=== PATIENT | female | born 1985 | race Caucasian/White ===

== ENCOUNTER → 2021-03-14 08:45 | Outpatient (CLI) | payer OTHER, SELFPAY ==
--- NOTE | ~2021-03-14 | US_ITS ---
EXAMINATION: US OB follow up DATE: 03/14/2021 09:22 INDICATION: Follow-up survey TECHNIQUE: Multiple obstetric sonographic images performed. FINDINGS: No prior studies for comparison. There is a single living fetus in vertex presentation. The placenta is paracentral to the left measu ring 1.2 cm to the cervix. without placenta previa. Amniotic fluid volume is subjectively normal. cardiac activity and movement is noted with a heart rate of 145 beats per minute. The following anatomy was identified as normal: 4 chamber heart 3 vessel cord cord insertion kidneys urinary bladder stomach spine diaphragm ventricles cisterna magna cerebellum The following biometric data were obtained: BPD: 63mm corresponds to gestational age 25 weeks 4 days. Head circumference: 232 mm corresponds to gestational age 25 weeks 2 days. Abdominal circumference: 207 mm corresponds to gestational age 25 weeks 2 days. Femur length: 48 mm corresponds to gestational age 26 weeks 1 days. Head circumference to abdominal circumference ratio: 1.12 (normal range for expected gestational age is 1.04-1.22). Estimated weight: 828 grams +/- 124 grams using Hadlock method. IMPRESSION: 1: Single living intrauterine with an estimated gestational age of 25weeks 4days by initial ultrasound measurements, with an EDC of 06/23/2021 in vertex presentation. 2. Normal survey. 3: Low-lying placenta measuring 1.2 cm to the cervix posteriorly. Reviewed, dictated and finalized at location B. IMPRESSION: 1: Single living intrauterine with an estimated gestational age of 25 weeks 4days by initial ultrasound measurements, with an EDC of 06/23/2021 in mindy lexi presentation. 2. Normal survey. 3: Low-lying placenta measuring 1.2 cm to the cervix posteriorly.
== END ==
PROVIDERS: Visit Provider Obstetrics & Gynecology
DX: O44.42 Low lying placenta NOS or without hemorrhage, second trimester (principal); Z3A.25 25 weeks gestation of pregnancy
CPT/HCPCS: 76816

== ENCOUNTER → 2021-04-12 11:24 | Outpatient (CLI) | payer OTHER, SELFPAY ==
--- NOTE | ~2021-04-12 | US_ITS ---
EXAMINATION: US OB follow up DATE: 04/12/2021 12:03 INDICATION: Follow-up low lying placenta. TECHNIQUE: Real-time transabdominal obstetric ultrasound. FINDINGS: Comparison ultrasound dated 03/14/2021 There is a single living fetus in vertex presentation. The placenta is paracentral to the left and i s low lying measuring 2.5 cm to the cervix without placenta previa. cardiac activity and movement is noted with a heart rate of 155 beats per minute. T he amniotic fluid volume is normal. JESSICA measures 11.6 cm. The following biometric data were obtained: BPD: 78mm corresponds to gestational age 31 weeks 2 days. Head circumference: 281mm corresponds to gestational age 30 weeks 6 days. Abdominal circumference: 245mm corresponds to gestational age 28 weeks 5 days. Femur length: 55mm corresponds to gestational age 29 weeks 1 days. Estimated weight: 1355grams +/- 203grams. IMPRESSION: 1. Single living intrauterine in vertex presentation with an estimated gestational age of 29 weeks 5 days by inititial ultrasound. Appropriate interval growth. 2. Low-lying placenta measuring 2.5 cm to the cervix. Reviewed, dictated and finalized at location A. IMPRESSION: 1. Single living intrauterine in vertex presentation with an estimat ed gestational age of 29 weeks 5 days by inititial ultrasound. Appropriate int erval growth. 2. Low-lying placenta measuring 2.5 cm to the cervix.
== END ==
PROVIDERS: Visit Provider Obstetrics & Gynecology
DX: Z34.93 Encounter for supervision of normal pregnancy, unspecified, third trimester (principal); Z3A.29 29 weeks gestation of pregnancy
CPT/HCPCS: 76816

== ENCOUNTER 2021-06-16 21:07 | Observation (INO) | payer OTHER, SELFPAY ==
[2021-06-16 21:20] VITALS: BMI 24.9
--- NOTE | 2021-06-16 22:25 | OBADM ---
This patient, Mandi Blanco, admitted to the OB room Labor/Delivery/Recovery 106 for observation. Patient/family oriented to hospital policies and general routines including ID bracelet, bed and alarms, visiting hours, pain management, procedures, bathroom and other care routines, personal items, smoking policy, room service/diet, and visiting hours. Patient/Family are encouraged to report perceived risks to care and to ask questions if they do not understand what they are told or what they should do.
--- NOTE | 2021-06-17 07:07 | PM.OBTRLD ---
OB - Triage/Final Diagnosis Visit Information Date of evaluation: 06/16/21 Reason for evaluation: threatened labor Comments/Additional reasons for admission: I have assessed the risk for this patient, Mandi Blanco, and determined that she would benefit from observation care.
== END 2021-06-16 22:33 | disposition home or self-care (01) ==
PROVIDERS: Admitting Provider Obstetrics & Gynecology; Visit Provider Obstetrics & Gynecology
DX: O47.1 False labor at or after 37 completed weeks of gestation (principal); Z3A.38 38 weeks gestation of pregnancy
CPT/HCPCS: G0378; G0379

== ENCOUNTER 2021-06-22 06:01 | Inpatient (IN) | payer OTHER, SELFPAY ==
[2021-06-22] VITALS (93 sets, daily range): BP systolic 77–169; BP diastolic 25–116; PULSE 72–149; RESP 12–18; TEMP 36.1–37.3; O2SAT 98–100; BMI 25.9
[2021-06-22] MEDS: AMPICILLIN 2 GM/NS 100 ML 2 GM/100 ML BAG IVPB (06:55)
[2021-06-22] MEDS: LACTATED RINGERS 1,000 ML 125 ML IV CONT ×4 (06:55→17:18)
--- NOTE | 2021-06-22 07:00 | LDADM ---
This patient, Mandi Blanco, was admitted to Labor/Delivery/Recovery 104 on 06/22/21 at 06:01. Plans for labor, pain management and were discussed with patient. Patient/family oriented to hospital policies and general routines including ID bracelet, bed and alarms, visiting hours, pain management, procedures, bathroom and other care routines, personal items, smoking policy, room service/diet and guest tray routines, infant security routines, and visiting hours. Patient/Family are encouraged to report perceived risks to care and to ask questions if they do not understand what they are told or what they should do. See OBIX for further documentation.
[2021-06-22 07:07] LABS: Basophils Absolute Auto 0.1 K/mm3 (0.0-0.1); Basophils Percent Auto 0.7 % (0.2-1.2); Eosinophils Absolute Auto 0.5 K/mm3 (0-0.3); Eosinophils Percent Auto 4.2 % (0-4.4); Hematocrit 34.5 % (37.0-47.0); Hemoglobin 11.3 g/dL (12.0-15.0); Immature Granulocyte Absolute 0.53 K/mm3 (0.00-0.031); Immature Granulocyte Percent A 4.8 % (0-0.5); Lymphocytes Absolute Auto 1.76 K/mm3 (0.9-3.2); Lymphocytes Percent Auto 16.1 % (18.3-44.2); Mean Corpuscular HGB Conc 32.8 g/dl (32-36); Mean Corpuscular Hemoglobin 30.2 pg (26-34); Mean Corpuscular Volume 92.2 fl (80-100); Mean Platelet Volume 10.5 fl (7.4-10.4); Monocytes Absolute Auto 0.9 K/mm3 (0.1-0.6); Monocytes Percent Auto 8.1 % (2.6-8.5); Neutrophils Absolute Auto 7.2 K/mm3 (1.3-6.7); Neutrophils Percent Auto 66.1 % (45.5-73.1); Platelet Count Result 214 k/mm3 (150-375); Red Blood Count 3.74 M/mm3 (4.2-5.4); Red Cell Distribution Width 15.9 % (11.5-14.5)
--- NOTE | 2021-06-22 07:28 | PM.IMHP ---
H&P: HPI History of Present Illness Date/Time: 06/22/21 07:28 This is a 35-year-old 6 para 2031 whose last menstrual period was 09/21/2020, EDC is 06/28/2021, confirmed by early ultrasound presents at 39 weeks gestation for induction of labor. She is positive for group B strep and will be treated as such. She has a history of a LEEP. Her has been otherwise uncomplicated Chief Complaint: induction of lbor at t Review of Systems Review of Systems: All systems reviewed & are unremarkable except as noted in HPI and below PMFSH Family History Family History Son Hypospadias Heart murmur Grandparent Diabetes mellitus Acute myocardial infarction Mother Hypertension Social History Social History Smoking status: Never smoker Substance use: never Spiritual care concerns: No Meds Home Medications and Allergies Home Medications Medication Instructions Recorded Confirmed Type ergocalciferol (vitamin D2) 1,250 mcg PO WEEKLY 06/01/21 06/01/21 History [Vitamin D2] prenat.vits,jeanne,[id number] 1 tablet PO DAILY 06/01/21 06/01/21 History Allergies Allergy/AdvReac Type Severity Reaction Status Date / Time Sulfa (Sulfonamide Allergy Intermediate SWELLING,HI Verified 02/10/16 15:41 Antibiotics) VES Vital Signs Vital Signs - 24 hr 06/22/21 06:58 06/22/21 07:00 Temperature 99.1 F Pulse Rate 87 90 Blood Pressure 124/57 L 114/63 Exam Const: General: no acute distress Eyes: General: appearance normal, both eyes and all related structures Neck: Neck: supple and no JVD Thyroid: thyroid normal Resp: Effort & Inspection: normal respiratory effort Auscultation: clear to auscultation bilaterally Cardio: Rate: regular rate Rhythm: regular rhythm GI: Inspection: non-distended GI Palp: Yes Soft to palpation, No Tenderness to palpation present (GI) and No Guarding due to palpation present (GI) Auscultation: normal bowel sounds : External Female Exam: normal external appearance Speculum Exam - Vagina: normal appearance of the vagina Speculum Exam - Cervix: Cervical os closed ( 75/1. AROM clear. FHTs were reassuring) Bimanual Exam- Adnexa, other: normal adnexae Skin: General skin exam: no rashes or lesions noted Extrem: General: normal to inspection and no edema Psych: Mental Status: mental status grossly normal Affect: normal affect H&P: Results Labs Labs: Short CBC 06/22/21 Range/Units 06:45 WBC 11.0 H (4.5-10.0) K/mm3 Hgb 11.3 L (12.0-15.0) g/dL Hct 34.5 L (37.0-47.0) % Plt Count 214 (150-375) k/mm3 Assessment and Plan Additional Plan impression: Term with favorable cervix and group B strep positive Plan: Medical induction of labor. Spontaneous vaginal delivery is expected. Group B strep prophylaxis is being undertaken. She has an epidural candidate
[2021-06-22] MEDS: OXYTOCIN 30 UNITS/NS 500 ML 30 UNITS/500 ML BAG IV CONT (07:52)
--- NOTE | 2021-06-22 09:00 | WPDANESEPP ---
Anes - Eval Pre Procedure Procedure: Labor Pain Management Date/Time: 06/22/21 09:00 Surgeon: Issac Preop Diagnosis: Pain during labor Pre Op Diagnosis: iol Patient Data Age: 35 Gender: F Height: 1.63 m Weight: 68.5 kg Last Vital Signs Temp 98.7 F 06/22/21 08:30 Pulse 92 06/22/21 08:30 BP 103/54 L 06/22/21 08:30 Allergies Allergy/AdvReac Type Severity Reaction Status Date / Time Sulfa (Sulfonamide Allergy Intermediate SWELLING,HI Verified 02/10/16 15:41 Antibiotics) VES Home Medications Medication Instructions Recorded Confirmed Type ergocalciferol (vitamin D2) 1,250 mcg PO WEEKLY 06/01/21 06/01/21 History [Vitamin D2] prenat.vits,jeanne,[id number] 1 tablet PO DAILY 06/01/21 06/01/21 History Laboratory Tests 06/22/21 06/22/21 06/22/21 06:45 06:45 06:45 WBC 11.0 K/mm3 H K/mm3 (4.5-10.0) RBC 3.74 M/mm3 L M/mm3 (4.2-5.4) Hgb 11.3 g/dL L g/dL (12.0-15.0) Hct 34.5 % L % (37.0-47.0) MCV 92.2 fl fl (80-100) MCH 30.2 pg pg (26-34) MCHC 32.8 g/dl g/dl (32-36) RDW 15.9 % H % (11.5-14.5) Plt Count 214 k/mm3 k/mm3 (150-375) MPV 10.5 fl H fl (7.4-10.4) Immature Gran % (Auto) 4.8 % H % (0-0.5) Neut % (Auto) 66.1 % % (45.5-73.1) Lymph % (Auto) 16.1 % L % (18.3-44.2) [place] % (Auto) 8.1 % % (2.6-8.5) Eos % (Auto) 4.2 % % (0-4.4) Baso % (Auto) 0.7 % % (0.2-1.2) Lymph # (Auto) 1.76 K/mm3 K/mm3 (0.9-3.2) [place] # (Auto) 0.9 K/mm3 H K/mm3 (0.1-0.6) Eos # (Auto) 0.5 K/mm3 H K/mm3 (0-0.3) Baso # (Auto) 0.1 K/mm3 K/mm3 (0.0-0.1) Abs Immat Gran (auto) 0.53 K/mm3 H K/mm3 (0.00-0.031) Absolute Neuts (auto) 7.2 K/mm3 H K/mm3 (1.3-6.7) Absolute Nucleated RBC 0.0 K/mm3 K/mm3 (0.0-0.012) Nucleated RBC % 0.0 % % (0.0-0.2) RPR Pending Blood Type Pending Antibody Screen Pending : gestational age (06/28/21) Patient hx anesthesia problems: none Family hx anesthesia problems: [facility] Past Medical History Medical History (Updated 06/22/21 @ 08:57 by Kaycee Dave CRNA) Pain during labor Family History Family History Son Hypospadias Heart murmur Grandparent Diabetes mellitus Acute myocardial infarction Mother Hypertension Social History Social History Smoking status: Never smoker Substance use: never Spiritual care concerns: No Exam Day of Procedure 06/22/21 09:00
--- NOTE | 2021-06-22 11:00 | PM.OBPNLAB ---
Pain Control Date/time seen: 06/22/21 11:00 Pain control: tolerating well and epidural Pelvic Exam Dilation (cm): 4 Effacement (%): 75 station: 0 Amniotic membrane status: Ruptured Contractions Monitor mode: External Contraction pattern: Regular
[2021-06-22] MEDS: AMPICILLIN 1 GM/NS 50 ML 1 GM/50 ML BAG IVPB (11:05)
--- NOTE | 2021-06-22 12:55 | PM.OBPRVD ---
OB - Delivery Note Procedure Delivery date: 06/22/21 Procedure: mil Intrapartal events: None Induction method: AROM Delivery augmentation: pitocin Delivery monitor: external FHT Route of delivery: Episiotomy description: None Laceration Description: Perineal - 2nd Degree Delivery repair: vicryl Specimen: No Quantitative Blood Loss (ml): 400 Anesthesia type: Epidural Disposition: floor Complications: amp x 2 for gbs [place] Baby Date of : 06/22/21 Time of : 12:41 Weeks of gestation at delivery: 39 Infant gender: Male Weight (pounds): 9 Weight (ounces): 2 presentation: vertex position: Right Occiput Anterior Placenta delivery description: Spontaneous cord vessel description: 3 Vessels score one minute: 9 score five minutes: 9
[2021-06-22] MEDS: miSOPROStol 200 MCG TABLET 1000 MCG (13:00)
[2021-06-22] MEDS: OXYTOCIN 30 UNITS/NS 500 ML 30 UNITS/500 ML BAG 999 UNITS IV CONT (13:10)
--- NOTE | 2021-06-22 13:50 | W.PM.PROC2 ---
Procedure Note - Detailed Date of Procedure 06/22/21 Pre-op Diagnosis pp bleed Post-op Diagnosis same Procedure Performed Suction dilatation curettage/exam under anesthesia Surgeon Sourav Ramos MD Anesthesia MAC and regional Indications This is a patient half an hour who was bleeding Findings size uterus. Clots were seen in the uterus. The cervix appeared intact. The second-degree midline tear appeared intact Description of Procedure The patient was prepped draped in normal sterile fashion placed in dorsal lithotomy position. Under excellent IV sedation weighted speculum placed in posterior fornix vagina. Anterior lip grasped with a sponge stick. This was traversed around its entire 360? and no tear was seen. Bleeding was seen coming from the uterine tissue. The 12. Suction curette was passed and moderate amount of clots resulting in about 200cc of clotted tissue and clots were noted. A good grating sound was heard. The vagina was then packed and the patient went to recovery in satisfactory condition. All sponge, needle, instrument counts were correct Estimated Blood Loss 200 Drains No Packing Yes Pathology yes Complications No immediate complications Condition stable Disposition floor
[2021-06-22] MEDS: ACETAMINOPHEN 325 MG TABLET 650 MG PO (16:01)
[2021-06-22 16:31] LABS: Hematocrit 32.7 % (37.0-47.0); Hemoglobin 10.5 g/dL (12.0-15.0); Mean Corpuscular HGB Conc 32.1 g/dl (32-36); Mean Corpuscular Hemoglobin 30.3 pg (26-34); Mean Corpuscular Volume 94.2 fl (80-100); Mean Platelet Volume 10.7 fl (7.4-10.4); Platelet Count Result 206 k/mm3 (150-375); Red Blood Count 3.47 M/mm3 (4.2-5.4); Red Cell Distribution Width 15.8 % (11.5-14.5); White Blood Count 11.4 K/mm3 (4.5-10.0)
[2021-06-22 16:40] LABS: Partial Thromboplastin Time 26.8 SECONDS (22.3-36.8); Prothrombin Time 13.3 Seconds (11.1-14.7)
[2021-06-22] MEDS: IBUPROFEN 600 MG TABLET PO ×2 (17:10→23:00)
[2021-06-22 17:23] LABS: Hematocrit 27.2 % (37.0-47.0); Hemoglobin 9.2 g/dL (12.0-15.0)
--- NOTE | 2021-06-22 19:08 | PC.NURSE ---
1650 Pt admitted to room 283 per stretcher from labor and delivery after vaginal delivery at [address] Rai Sheikh. Mother had a D&C after delivery. Mother is a and is choosing to breast feed infant. /FOB present. Couple oriented to room, staffing and procedures; admission folder reviewed. Pt's VSS and assessment WNL.
[2021-06-22] MEDS: HYDROcodone/acetaminophen (*CRX) 5-325 MG TABLET 1 TAB PO ×2 (19:24→22:16)
[2021-06-22] MEDS: POLYSACCHARIDE IRON COMPLEX 150 MG CAPSULE PO (19:24)
--- NOTE | 2021-06-22 20:57 | PC.NURSE ---
1850 - epidural line removed per pt's request, states it is painful, removed easily, tip intact
--- NOTE | 2021-06-22 22:37 | PC.NURSE ---
vaginal packing removed as ordered
[2021-06-22] MEDS: DOCUSATE SODIUM 100 MG CAPSULE PO (23:00)
[2021-06-23 00:05] VITALS: BP 100/45; PULSE 78; RESP 18; TEMP 36.2; O2SAT 99
[2021-06-23] MEDS: HYDROcodone/acetaminophen (*CRX) 5-325 MG TABLET 1 TAB PO ×2 (03:27→19:53)
[2021-06-23 04:21] VITALS: BP 99/55; PULSE 75; RESP 18; TEMP 35.8; O2SAT 100
[2021-06-23 05:00] LABS: Hematocrit 23.9 % (37.0-47.0); Hemoglobin 7.9 g/dL (12.0-15.0)
--- NOTE | 2021-06-23 06:35 | PM.OBPNVD ---
OB - PN: Subj Subjective Date/time seen: 06/23/21 06:35 Patient comments: no complaints and pain well controlled baby status: doing well and nursing well OB - PN: Obj Data Labs CBC & Chem 7: 06/23/21 04:28 Labs: Laboratory Results - last 24 hr 06/22/21 06/22/21 06/22/21 06:45 06:45 13:16 WBC 11.0 H 11.4 H RBC 3.74 L 3.47 L Hgb 11.3 L 10.5 L Hct 34.5 L 32.7 L MCV 92.2 94.2 MCH 30.2 30.3 MCHC 32.8 32.1 RDW 15.9 H 15.8 H Plt Count 214 206 MPV 10.5 H 10.7 H Immature Gran % (Auto) 4.8 H Neut % (Auto) 66.1 Lymph % (Auto) 16.1 L [place] % (Auto) 8.1 Eos % (Auto) 4.2 Baso % (Auto) 0.7 Lymph # (Auto) 1.76 [place] # (Auto) 0.9 H Eos # (Auto) 0.5 H Baso # (Auto) 0.1 Abs Immat Gran (auto) 0.53 H Absolute Neuts (auto) 7.2 H Absolute Nucleated RBC 0.0 Nucleated RBC % 0.0 PT INR APTT Blood Type B Positive Antibody Screen Negative 06/22/21 06/22/21 06/23/21 13:16 17:01 04:28 WBC RBC Hgb 9.2 L 7.9 L Hct 27.2 L 23.9 L MCV MCH MCHC RDW Plt Count MPV Immature Gran % (Auto) Neut % (Auto) Lymph % (Auto) [place] % (Auto) Eos % (Auto) Baso % (Auto) Lymph # (Auto) [place] # (Auto) Eos # (Auto) Baso # (Auto) Abs Immat Gran (auto) Absolute Neuts (auto) Absolute Nucleated RBC Nucleated RBC % PT 13.3 INR 1.0 APTT 26.8 Blood Type Antibody Screen OB - PN A/P Plan day: 1 Plan: routine care Comments: Begin iron supplementation Time Spent With Patient Time: Total time spent is greater than 50% in coordination of care (as documented) at patient's floor/unit and/or counseling patient: Time with patient: less than 15 minutes Review of Systems Review of Systems: All systems reviewed & are unremarkable except as noted in HPI and below Exam Const: General: no acute distress Eyes: General: appearance normal, both eyes and all related structures Neck: Neck: supple and no JVD Thyroid: thyroid normal Resp: Effort & Inspection: normal respiratory effort Auscultation: clear to auscultation bilaterally Cardio: Rate: regular rate Rhythm: regular rhythm GI: Inspection: non-distended GI Palp: Yes Soft to palpation, No Tenderness to palpation present (GI) and No Guarding due to palpation present (GI) Auscultation: normal bowel sounds : General: Yes bladder normal to palpation External Female Exam: normal external appearance Speculum Exam - Vagina: normal vaginal discharge and No vaginal bleeding Speculum Exam - Cervix: nontender Bimanual exam- vagina & uterus: bladder normal to palpation and No Cervical tenderness present OB/external & speculum: No vaginal bleeding Skin: General skin exam: no rashes or lesions noted Extrem: General: normal to inspection and no edema Psych: Mental Status: mental status grossly normal Affect: normal affect
[2021-06-23] MEDS: IBUPROFEN 600 MG TABLET PO ×2 (07:17→14:13)
[2021-06-23] MEDS: LANOLIN (LANSINOH) 7.5 GM CREAM 1 APPLIC TOPICAL (07:17)
[2021-06-23] MEDS: DOCUSATE SODIUM 100 MG CAPSULE PO ×2 (07:18→17:35)
[2021-06-23] MEDS: POLYSACCHARIDE IRON COMPLEX 150 MG CAPSULE PO ×2 (07:18→17:35)
[2021-06-23] MEDS: MULTIVIT/MIN/PREN/FOL AC/IRON TABLET 1 TAB PO (07:18)
--- NOTE | 2021-06-23 09:10 | PC.NURSE ---
Mother called out for assist with feeding, reporting tenderness with feeding. is able to freely thrust tongue past gum ridge and flange both lips, upper lip appears to have a thick frenulum. Skin is intact on both nipples, no redness and bruising noted. Reviewed feeding cues, frequencies, duration of feedings, feeding elimination flow sheet, and signs of adequate intake. Demonstrated stimulation techniques to wake infant for feeding. Assisted with to breast. Reviewed positioning/alignment in cross cradle, holding breast in ?U? hold and guided asymmetrical latch on. Reviewed rational for each. able to latch correctly within a few attempts. Infant nursed eagerly with steady draws and occasional swallowing noted, some pausing noted. Reviewed signs of a correct latch, effective nursing and suck swallow ratio. Suggested mother stimulate while feeding to increase stimulate, increase intake and to assist with maintaining deep latch. Infant would slip to shallow latch once mother released hold on breast. Suggested mother maintain U hold during entire feeding to assist with maintaining deep latch. Demonstrated how to adjust latch more deeply while feeding. Mother reports sh he can feel the difference in latch with less tenderness. Nipple care Reviewed of lanolin after feedings, warm compresses as needed. Instructed mother to call out for RN assistance if she is unable to latch infant for feeding or she has discomfort with nursing. Instructed feeding should be initiated three hours from start of last feeding or if feeding cues are noted before. Mother voiced understanding of information shared
--- NOTE | 2021-06-23 10:23 | WPDANESPN ---
Anes - Prog Note Post-Op Date/Time: 06/23/21 10:23 Cardiovascular status: normal Respiratory status: normal Airway patency: baseline Mental status: baseline Post-Op hydration status: normal Vital Signs: Last Vital Signs Temp 96.5 F L 06/23/21 04:21 Pulse 75 06/23/21 04:21 Resp 18 06/23/21 04:21 BP 99/55 L 06/23/21 04:21 Pulse Ox 100 06/23/21 04:21 Pain Score (VAS): 10 I/O: Intake & Output 06/22/21 06/23/21 06/23/21 23:59 07:59 15:59 Intake Total 300 200 Output Total 1550 800 Balance -1250 -600 Laboratory Tests 06/23/21 04:28 06/22/21 06/22/21 06/22/21 13:16 13:16 17:01 WBC 11.4 H RBC 3.47 L Hgb 10.5 L 9.2 L Hct 32.7 L 27.2 L MCV 94.2 MCH 30.3 MCHC 32.1 RDW 15.8 H Plt Count 206 MPV 10.7 H PT 13.3 INR 1.0 APTT 26.8 06/23/21 04:28 WBC RBC Hgb 7.9 L Hct 23.9 L MCV MCH MCHC RDW Plt Count MPV PT INR APTT Patient Feedback: Patient satisfied with anesthetic care.
--- NOTE | 2021-06-23 10:35 | WPDANLDPN2 ---
Anes-Prog Note L&D Date/Time: 06/23/21 10:35 Comfortable throughout: labor and delivery Neuraxial method: epidural Neuro status: Neuro function grossly intact. Cardiovascular status: normal Respiratory status: normal Airway patency: baseline Mental status: baseline Post-Op hydration status: normal Vital Signs: Last Vital Signs Temp 96.5 F L 06/23/21 04:21 Pulse 75 06/23/21 04:21 Resp 18 06/23/21 04:21 BP 99/55 L 06/23/21 04:21 Pulse Ox 100 06/23/21 04:21 Pain score (VAS): 0/10 I/O: Intake & Output 06/22/21 06/23/21 06/23/21 23:59 07:59 15:59 Intake Total 300 200 Output Total 1550 800 Balance -1250 -600 Post-procedural complaints: none Patient feedback: Patient satisfied with anesthetic care.
[2021-06-23 11:49] VITALS: BP 95/57; PULSE 73; RESP 18; TEMP 36; O2SAT 100
[2021-06-23 12:55] VITALS: BP 90/48; PULSE 82; RESP 16; TEMP 36.6; O2SAT 99
[2021-06-23] MEDS: ACETAMINOPHEN 325 MG TABLET 650 MG PO (14:14)
[2021-06-23 20:00] VITALS: BP 93/52; PULSE 85; RESP 16; TEMP 37.1; O2SAT 98
[2021-06-24] MEDS: ACETAMINOPHEN 325 MG TABLET 650 MG PO (01:57)
[2021-06-24] MEDS: IBUPROFEN 600 MG TABLET PO ×2 (01:57→11:27)
--- NOTE | 2021-06-24 07:25 | PM.DS ---
DS: Admitting Diagnosis Discharge Date 06/24/21 Admitting Diagnosis term iup DS: Summary Hospital Course Hospital Course: The patient was admitted for induction of labor. She was positive for group B strep in underwent group B strep prophylaxis. She had a spontaneous vaginal delivery under epidural anesthesia. She had bleeding which she had experienced before in the past. Exam under anesthesia and suction D&C removed clots. She was packed and that was removed that evening. She remained afebrile she was up, voiding without difficulty, ambulating, generally without complaints. She was taking iron [id number]. Time Spent with Patient Time attestation: Total time spent providing and/or coordinating discharge services: Exam Const: General: no acute distress Eyes: General: appearance normal, both eyes and all related structures Neck: Neck: supple and no JVD Thyroid: thyroid normal Resp: Effort & Inspection: normal respiratory effort Auscultation: clear to auscultation bilaterally Cardio: Rate: regular rate Rhythm: regular rhythm GI: Inspection: non-distended GI Palp: Yes Soft to palpation, No Tenderness to palpation present (GI) and No Guarding due to palpation present (GI) Auscultation: normal bowel sounds : General: Yes bladder normal to palpation External Female Exam: normal external appearance Speculum Exam - Vagina: normal vaginal discharge and No vaginal bleeding Speculum Exam - Cervix: nontender Bimanual exam- vagina & uterus: bladder normal to palpation and No Cervical tenderness present OB/external & speculum: No vaginal bleeding Skin: General skin exam: no rashes or lesions noted Extrem: General: normal to inspection and no edema Psych: Mental Status: mental status grossly normal Affect: normal affect DS: Data Data Completed and Pending Pending studies at discharge: Pending at discharge 06/22/21 13:40 Surgical [PTH] Routine Discharge Plan Discharge Attending physician on discharge: Sourav Ramos Discharging Clinician: Sourav Ramos Patient Disposition: Home, Self-Care Activity: may shower, no straining and pelvic rest Diet: heart healthy Wound Care Instructions: follow printed instructions Patient Instructions: Antibiotic Form Stand Alone Forms: General Discharge Information Follow-up/Referrals: Sourav Ramos MD [Physician] - Discharge Medications: New ferrous sulfate [Iron (ferrous sulfate)] 325 mg (65 mg iron) tablet 325 mg PO DAILY Qty: 30 RF: 0 Continued ergocalciferol (vitamin D2) [Vitamin D2] 1,250 mcg (50,000 unit) Capsule 1,250 mcg PO WEEKLY RF: 0 prenat.vits,jeanne,[id number] Tablet 1 tablet PO DAILY RF: 0 Date of admission: 06/22/21 06:01 Primary Care Provider: PHYSICIAN,SUPERVISOR [employer] Admitting Provider: Sourav Ramos Attending physician on admission: Sourav Ramos Condition: Stable
--- NOTE | 2021-06-24 07:28 | PM.OBPNVD ---
OB - PN: Subj Subjective Date/time seen: 06/24/21 07:28 Patient comments: no complaints and pain well controlled baby status: doing well and nursing well OB - PN: Obj Data Labs CBC & Chem 7: 06/23/21 04:28 OB - PN A/P Plan day: 2 Plan: routine care, discharge home and follow up 6 weeks Time Spent With Patient Time: Total time spent is greater than 50% in coordination of care (as documented) at patient's floor/unit and/or counseling patient: Time with patient: less than 15 minutes Review of Systems Review of Systems: All systems reviewed & are unremarkable except as noted in HPI and below Exam Const: General: no acute distress Eyes: General: appearance normal, both eyes and all related structures Neck: Neck: supple and no JVD Thyroid: thyroid normal Resp: Effort & Inspection: normal respiratory effort Auscultation: clear to auscultation bilaterally Cardio: Rate: regular rate Rhythm: regular rhythm GI: Inspection: non-distended GI Palp: Yes Soft to palpation, No Tenderness to palpation present (GI) and No Guarding due to palpation present (GI) Auscultation: normal bowel sounds : General: Yes bladder normal to palpation External Female Exam: normal external appearance Speculum Exam - Vagina: normal vaginal discharge and No vaginal bleeding Speculum Exam - Cervix: nontender Bimanual exam- vagina & uterus: bladder normal to palpation and No Cervical tenderness present OB/external & speculum: No vaginal bleeding Skin: General skin exam: no rashes or lesions noted Extrem: General: normal to inspection and no edema Psych: Mental Status: mental status grossly normal Affect: normal affect
[2021-06-24 07:45] VITALS: BP 103/59; PULSE 82; RESP 16; TEMP 36.2; O2SAT 100
[2021-06-24 08:50] LABS: Rapid Plasma Reagin Non-Reactive (NonReactive)
--- NOTE | 2021-06-24 09:10 | PC.NURSE ---
Consult with pt., observed mother is able to independently latch with appropriate positioning/alignment. eagerly latches on first attempt with long rhythmical draws and frequent swallowing noted. She reports slight nipple discomfort, is feeding as required and waking to feed if needed. Infant tends to roll bottom lip in, demonstrated how to roll lip out while feeding. has had at least 8 effective feedings in the past 24 hours, and is currently meeting outcomes for weight, output, jaundice and feeding frequencies. Mother states she feels confident to continue effective at home. Reviewed transition to breast milk, signs of adequate intake, and engorgement/relief. Instructed to call ICP if intake/output less than required. Reviewed regular medications mother is taking. Information provided per Lashanda. Reviewed community resources on the [employer] website and in the Mom/Baby guide. Information on outpatient services provided. Mother has no further questions at this time. Instructed feeding should be initiated three hours from start of last feeding or if feeding cues are noted before until seen by ICP. Mother voiced understanding of information shared.
[2021-06-24] MEDS: POLYSACCHARIDE IRON COMPLEX 150 MG CAPSULE PO (11:26)
[2021-06-24] MEDS: MULTIVIT/MIN/PREN/FOL AC/IRON TABLET 1 TAB PO (11:27)
[2021-06-24] MEDS: DOCUSATE SODIUM 100 MG CAPSULE PO (11:27)
[2021-06-27 08:27] VITALS: BP 118/62; PULSE 82; RESP 20; TEMP 36.8; O2SAT 100
== END 2021-06-24 12:25 | disposition home or self-care (01) | DRG 807 ==
LOC: ANHLDR 13:28 → ANHOB2 17:00
PROVIDERS: Admitting Provider Obstetrics & Gynecology; Visit Provider Obstetrics & Gynecology
PROC: 10E0XZZ Delivery of Products of Conception, External Approach (ICD-10-PCS; principal; 2021-06-22 14:00)
DX: O99.824 Streptococcus B carrier state complicating childbirth (principal); Z37.0 Single live birth; Z3A.39 39 weeks gestation of pregnancy; O72.1 Other immediate postpartum hemorrhage; O36.8330 Maternal care for abnormalities of the fetal heart rate or rhythm, third trimester, not applicable or unspecified; O70.1 Second degree perineal laceration during delivery
CPT/HCPCS: 36415; 85014; 85018; 85025; 85027; 85610; 85730; 86592; 86850; 86900; 86901; 88305; A9270; J0290; J0690; J2250; J2590; J2795; J7120

== ENCOUNTER 2021-12-15 10:38 | Outpatient (CLI) | payer BC, SELFPAY ==
--- NOTE | ~2021-12-15 | XR_ITS ---
EXAMINATION: XR finger 3rd RT min 2V EXAM DATE: 12/15/2021 10:53 INDICATION: M79.646 - Pain in unspecified right finger, no injury . TECHNIQUE: Right 3rd finger frontal, lateral and oblique projections obtained and reviewed. There is no prior study for comparison. FINDINGS: There are no acute right 3rd finger fractures or dislocations identified. There is no subc utaneous gas. There appears be swelling over the proximal interphalangeal joint dorsally. There are no bony erosions identified. There are no radiopaque foreign bodies. IMPRESSION: Swelling over right 3rd PIP joint. Reviewed, dictated and finalized at location A. [employer]
== END 2021-12-15 10:39 | disposition home or self-care (01) ==
PROVIDERS: PCP Family Medicine; Visit Provider Family Medicine
DX: M79.646 Pain in unspecified finger(s) (principal); M79.89 Other specified soft tissue disorders
CPT/HCPCS: 73140

== ENCOUNTER 2021-12-22 15:16 | Outpatient (CLI) | payer BC, SELFPAY ==
[2021-12-24 19:40] LABS: ANA Cascade Screen Negative (Negative)
== END 2021-12-22 15:17 | disposition home or self-care (01) ==
LOC: ANHBWCLAB 15:17
PROVIDERS: PCP Family Medicine; Visit Provider Family Medicine
DX: M79.646 Pain in unspecified finger(s) (principal); M79.89 Other specified soft tissue disorders
CPT/HCPCS: 36415; 84550; 86038

== ENCOUNTER → 2022-02-22 16:59 | Outpatient (CLI) | payer BC, SELFPAY ==
--- NOTE | ~2022-02-22 | MR_ITS ---
EXAMINATION: MR hand RT wo con DATE: 02/22/2022 18:07 INDICATION: Stress fracture. Pain and swelling at the right third digit. TECHNIQUE: Magnetic resonance imaging (MRI) of the right hand was performed without intravenous contr ast to include the metacarpals and digits. Sequences included axial, sagittal and coronal T1-weighted FSE and T2-weighted FS FSE. COMPARISON: Right hand radiographs dated 02/07/2022 FINDINGS: Bone alignment is normal. Normal bone marrow signal throughout with no fracture, reactive marrow sachin a or pathologic marrow replacing process. Joint spaces are normal with no joint effusions. There is a small amount of fluid along the flexor tendons to the third and and lesser degree fourth digits at t he level of the distal metacarpals consistent with mild tenosynovitis. The flexor and extensor tendon s are normal. Thickening and mild increased signal of the ulnar collateral ligament complex at the th ird proximal interphalangeal joint without surrounding edema which in isolation suggests a subacute o r chronic low-grade sprain. Differential would include inflammatory arthritis although no bone erosio ns identified on either the current study or prior radiographs to more specifically suggest this. The remaining collateral ligament complex at the metacarpophalangeal and interphalangeal joints are norm al. Intrinsic musculature of the right hand is normal. IMPRESSION: 1. Thickening and mild increased signal of the radial collateral ligament of the right third proximal interphalangeal joint which could relate to sprain or less likely an inflammatory arthritis. 2. Mild tenosynovitis along the flexor tendon sheaths of the third and fourth digits. Reviewed, dictated and finalized at location A. IMPRESSION: 1. Thickening and mild increased signal of the radial collateral ligament of th e right third proximal interphalangeal joint which could relate to sprain or le ss likely an inflammatory arthritis. 2. Mild tenosynovitis along the flexor tendon sheaths of the third and fourth d igits.
== END ==
PROVIDERS: PCP Family Medicine; Visit Provider Orthopaedic Surgery
DX: M84.344A Stress fracture, right finger(s), initial encounter for fracture (principal); M65.841 Other synovitis and tenosynovitis, right hand
CPT/HCPCS: 73218

== ENCOUNTER 2025-06-29 01:03 | Day surgery (SDC) | payer OTHER, SELFPAY ==
[2025-06-15 15:00] VITALS: BMI 21.9
[2025-06-29 09:20] VITALS: BP 109/51; PULSE 77; RESP 14; TEMP 36.6; O2SAT 100
[2025-06-29 09:23] LABS: BEDSIDEPREGUCG Negative (Negative)
--- NOTE | 2025-06-29 09:43 | P.PNAN_ITS ---
Anes - Initial Pre Proc Eval Procedure: Operation Date: 06/29/25 10:30 Proposed Procedures p Esophagogastroduodenoscopy - Guanako Dickerson MD Date/Time: 06/29/25 09:43 Surgeon: Guanako Dickerson MD Pre Op Diagnosis: Dysphagia, unspecified, GERD Patient Data Age: 39 Gender: F Height: 1.63 m Weight: 60 kg Last Vital Signs Temp 36.6 C 06/29/25 09:20 Pulse 77 06/29/25 09:20 Resp 14 06/29/25 09:20 BP 109/51 L 06/29/25 09:20 Pulse Ox 100 06/29/25 09:20 O2 Del Method Room Air 06/29/25 09:20 Allergies Allergy/AdvReac Type Severity Reaction Status Date / Time Sulfa (Sulfonamide Allergy Intermediate SWELLING,HI Verified 06/29/25 09:19 Antibiotics) VES Home Medications ?Medication ?Instructions ?Recorded ?Confirmed ?Type alprazolam 0.5 mg tablet 0.5 mg PO DAILY PRN anxiety #30 06/15/25 06/29/25 Rx tabs Laboratory Tests 06/29/25 09:20 POC Urine HCG, Qual Negative (Negative) Patient hx anesthesia problems: none Family hx anesthesia problems: none Results Review: All pre-operative results and documents have been reviewed as part of the pre- operative evaluation. [facility] Past Medical History Medical History Eye disorder Stress fracture of finger of right hand PNC (postnecrotic cirrhosis) Hx LEEP (loop electrosurgical excision procedure), cervix, Pain during labor Surgical History Surgical History History of dilation and curettage x2 2018 and 2020 Family History Family History Son Hypospadias Heart murmur Grandparent Diabetes mellitus Acute myocardial infarction Mother Hypertension Social History Social History Smoking status: Never smoker Alcohol intake: current Drinks per week: 3 Alcohol use details: wine Substance use: never Substance use type: does not use Lack of Transportation: No Lack of Food: Never True Current Housing: I Have Housing Concerned About Future Housing: No Difficulty Paying Gas/Electric Bills: No Difficulty Paying for Meds: No Currently Unemployed: No Education: Associate Degree Difficulty w/ Childcare or Family Care: No Living arrangements: with family Gender identity (if verbalized by the patient): Female Spiritual care concerns: No Anes - Eval Final PreProcedure Day of Procedure 06/29/25 09:43 Patient weight: normal Heart: regular rate and rhythm Lungs: clear to auscultation Airway: Mallampati scale class 1 Neurological: alert and oriented Last oral intake: >/= 8 hours ASA classification: II Emergent: no Anesthetic plan: proceed Anesthesia type and monitoring: general GIVS and standard monitoring Results Review: All pre-operative results and documents have been reviewed as part of the pre- operative evaluation. Informed Consent: The patient's anesthetic plan and its attendant risks and benefits were discussed with the patient/family/POA. Questions were solicited and answers provided to the satisfaction of the patient/family/POA.
--- NOTE | 2025-06-29 10:05 | PM.HPGS ---
History of Present Illness History of Present Illness Consent: Risks, benefits, and alternatives have been discussed and questions answered. Patient agrees to proceed with procedure. Chief complaint: Dysphagia, unspecified, GERD Narrative: Mandi Romero is a 39 year old female here for first EGD, h/o gerd and dysphagia. Review of Systems Review of Systems: All systems reviewed & are unremarkable except as noted in HPI and below PMFSH Past Medical History Medical History Eye disorder Stress fracture of finger of right hand PNC (postnecrotic cirrhosis) Hx LEEP (loop electrosurgical excision procedure), cervix, Pain during labor Surgical History Surgical History History of dilation and curettage x2 2018 and 2020 Family History Family History Son Hypospadias Heart murmur Grandparent Diabetes mellitus Acute myocardial infarction Mother Hypertension Social History Social History Smoking status: Never smoker Alcohol intake: current Drinks per week: 3 Alcohol use details: wine Substance use: never Substance use type: does not use Lack of Transportation: No Lack of Food: Never True Current Housing: I Have Housing Concerned About Future Housing: No Difficulty Paying Gas/Electric Bills: No Difficulty Paying for Meds: No Currently Unemployed: No Education: Associate Degree Difficulty w/ Childcare or Family Care: No Living arrangements: with family Gender identity (if verbalized by the patient): Female Spiritual care concerns: No Meds Home Medications and Allergies Home Medications ?Medication ?Instructions ?Recorded ?Confirmed ?Type alprazolam 0.5 mg tablet 0.5 mg PO DAILY PRN anxiety #30 06/15/25 06/29/25 Rx tabs Allergies Allergy/AdvReac Type Severity Reaction Status Date / Time Sulfa (Sulfonamide Allergy Intermediate SWELLING,HI Verified 06/29/25 09:19 Antibiotics) VES Vital Signs Vital Signs - 24 hr 06/29/25 09:20 Temperature 97.8 F Pulse Rate 77 Respiratory Rate 14 Blood Pressure 109/51 L Pulse Oximetry 100 Oxygen Delivery Room Air Exam Const: General: comfortable and no acute distress HENMT: Face/Nose/Sinus: Normal nares present Eyes: General: appearance normal, both eyes and all related structures Neck: Neck: no JVD Resp: Auscultation: clear to auscultation bilaterally Cardio: Rate: regular rate Rhythm: regular rhythm GI: Inspection: non-distended GI Palp: Yes Soft to palpation Skin: General skin exam: normal color Neuro: General: gait normal Speech: normal speech Extrem: General: normal to inspection Psych: Mental Status: mental status grossly normal Assessment and Plan Assessment and plan (1) GERD (gastroesophageal reflux disease): Code(s): K21.9 - Gastro-esophageal reflux disease without esophagitis Status: Acute Assessment and Plan: egd with bx (2) Dysphagia: Code(s): R13.10 - Dysphagia, unspecified Status: Acute
[2025-06-29] MEDS: LACTATED RINGERS 1,000 ML 150 ML IV CONT (10:08)
--- NOTE | 2025-06-29 10:12 | S_PTH ---
PATIENT: Mandi Romero LOC: [facility]#:[id number] AGE/SX: 39/F ROOM: RE06/29/[address]: Guanako Dickerson MD : 1985 BED: DIS: 06/29/2025 SPEC #: [id number] RECD: 06/29/25 11:40 STATUS: CHERY GAMBLE #: [id number] LOLITA: 06/29/25 10:[address]: uGanako Dickerson DEPT: [facility] Surgical RECD BY: Mckenzie Monterroso ENTERED: 06/29/25 11:40 SP TYPE: Surgical OTHR DR: Lynne Salcido APRN Tissues: A - Esophageal Biopsy B - Esophageal Biopsy C - Gastric Biopsy Procedures: Hematoxylin and Eosin Stain Gross and Microscopic Level 4
[2025-06-29 10:15] VITALS: BP 79/30; PULSE 64; RESP 15; O2SAT 100
[2025-06-29 10:18] VITALS: BP 65/42; PULSE 62; RESP 14; O2SAT 100
[2025-06-29 10:25] VITALS: BP 68/48; PULSE 66; RESP 19; O2SAT 100
[2025-06-29 10:35] VITALS: BP 99/47; PULSE 61; RESP 15; O2SAT 100
[2025-06-29 10:40] VITALS: BP 97/58; PULSE 60; RESP 22; O2SAT 100
== END 2025-06-29 10:44 | disposition home or self-care (01) ==
PROVIDERS: Anesthesiology; PCP Nurse Practitioner Adult Health; Referring Provider Nurse Practitioner; Visit Provider Internal Medicine Gastroenterology
PROC: 0DJ08ZZ Inspection of Upper Intestinal Tract, Via Natural or Artificial Opening Endoscopic (ICD-10-PCS; CPT 43239; principal; 2025-06-29 10:30)
DX: K20.0 Eosinophilic esophagitis (principal); R13.10 Dysphagia, unspecified
CPT/HCPCS: 43239; 88305; J2003; J2704; J7120